=== PATIENT | female | born 1975 | race Caucasian/White ===

== ENCOUNTER → 2019-04-30 14:19 | Outpatient (BNVA) | payer MEDICAID, SELFPAY | PROVIDERS: Visit Provider Internal Medicine Rheumatology | DX: M05.79 Rheumatoid arthritis with rheumatoid factor of multiple sites without organ or systems involvement (principal); Z79.899 Other long term (current) drug therapy; M12.00 Chronic postrheumatic arthropathy [Jaccoud], unspecified site; R21 Rash and other nonspecific skin eruption; Z79.52 Long term (current) use of systemic steroids | CPT/HCPCS: 36415; 99214 ==

== ENCOUNTER 2019-04-30 16:54 | Outpatient (CLI) | payer MEDICAID, SELFPAY | END 2019-04-30 16:55 | disposition home or self-care (01) | LOC: LAB 16:56 | PROVIDERS: Absent Provider Internal Medicine Rheumatology; Visit Provider Internal Medicine Rheumatology | DX: Z79.899 Other long term (current) drug therapy (principal); M05.9 Rheumatoid arthritis with rheumatoid factor, unspecified | CPT/HCPCS: 80076; 82306; 82565; 85025; 85651; 86140 ==

== ENCOUNTER → 2020-03-04 14:41 | Outpatient (BNVA) | payer MEDICAID, SELFPAY | PROVIDERS: PCP Nurse Practitioner Family; Visit Provider Internal Medicine Rheumatology | DX: M05.79 Rheumatoid arthritis with rheumatoid factor of multiple sites without organ or systems involvement (principal); M12.00 Chronic postrheumatic arthropathy [Jaccoud], unspecified site; Z79.899 Other long term (current) drug therapy; R21 Rash and other nonspecific skin eruption | CPT/HCPCS: 99214 ==

== ENCOUNTER → 2020-07-22 12:54 | Outpatient (BNVA) | payer MEDICAID, SELFPAY | PROVIDERS: PCP Nurse Practitioner Family; Visit Provider Internal Medicine Rheumatology | DX: M05.79 Rheumatoid arthritis with rheumatoid factor of multiple sites without organ or systems involvement (principal); M12.00 Chronic postrheumatic arthropathy [Jaccoud], unspecified site; Z79.899 Other long term (current) drug therapy; D50.9 Iron deficiency anemia, unspecified | CPT/HCPCS: 99214 ==

== ENCOUNTER → 2021-03-03 12:39 | Outpatient (BNVA) | payer MEDICAID, SELFPAY | PROVIDERS: PCP Nurse Practitioner Family; Visit Provider Internal Medicine Rheumatology | DX: M05.79 Rheumatoid arthritis with rheumatoid factor of multiple sites without organ or systems involvement (principal); M12.00 Chronic postrheumatic arthropathy [Jaccoud], unspecified site; Z79.899 Other long term (current) drug therapy; Z86.11 Personal history of tuberculosis; Z71.89 Other specified counseling | CPT/HCPCS: 99214 ==